=== PATIENT | female | born 1960 | race Hispanic/Latino ===

== ENCOUNTER 2021-01-23 12:50 | Emergency (ER) | payer SELFPAY ==
[~2021-01-23] VITALS: Ht 152.4 cm; Wt 76.7 kg
== END 2021-01-23 13:22 | disposition home or self-care (01) ==
LOC: ER 13:21
DX: R42 Dizziness and giddiness (principal); I10 Essential (primary) hypertension; E11.9 Type 2 diabetes mellitus without complications
CPT/HCPCS: 93005; 99282